=== PATIENT | male | born 1985 | race Caucasian/White ===

== ENCOUNTER 2021-11-25 18:08 | Emergency (ER) | payer OTHER ==
[2021-11-25 18:32] VITALS: BP 155/88; PULSE 84; TEMP 98.7; BMI 28.8
== END 2021-11-25 20:09 | disposition home or self-care (01) ==
LOC: JERFT 18:08
DX: S92.422A Displaced fracture of distal phalanx of left great toe, initial encounter for closed fracture (principal); W20.8XXA Other cause of strike by thrown, projected or falling object, initial encounter
CPT/HCPCS: 73660-TC-LT-FY; 99283-25